=== PATIENT | male | born 1940 | race Native Hawaiian/Other Pacific Islander ===

== ENCOUNTER 2017-07-28 13:00 | Emergency (ER) | payer OTHER ==
[~2017-07-28] VITALS: Ht 175.3 cm; Wt 86.2 kg
== END 2017-07-28 13:43 | disposition home or self-care (01) ==
LOC: ED 13:00
DX: S51.811A Laceration without foreign body of right forearm, initial encounter (principal); I10 Essential (primary) hypertension; W20.8XXA Other cause of strike by thrown, projected or falling object, initial encounter; Y92.79 Other farm location as the place of occurrence of the external cause
CPT/HCPCS: 99283; J7040